=== PATIENT | female | born 1935 | race Caucasian/White ===

== ENCOUNTER → 2017-12-21 08:57 | Outpatient (CLI) | payer MEDICARE, SELFPAY ==
[2017-12-21 11:42] LABS: Absolute Lymphocyte Count 0.68 X10^3/ul (0.83-4.51); Absolute Neutrophil Count 3.4 X10^3/uL (2.0-7.7); Basophil# 0.04 X10^3/uL; Basophil% 0.9 % (0-1); Eosinophil# 0.07 X10^3/uL; Eosinophils% 1.5 % (0-5); Hematocrit 38.4 % (37-47); Hemoglobin 12.6 g/dl (12.0-15.0); Lymphocyte # 0.68 X10^3/ul (4.0); Lymphocyte % 14.9 % (19-41); Mean Corp Hgb Conc 32.8 g/gl (32-36); Mean Corpuscular Hgb 31.2 pg (27.0-32.0); Mean Platelet Vol. 10.6 fl (6.2-12.0); Monocyte# 0.38 X10^3/uL; Monocyte% 8.3 % (0-10); Neutrophil % 74.4 % (47-70); Platelet Count 197 K/mm3 (150-450); RBC Distribution Width CV 12.6 % (11.6-14.6); RBC Distribution Width SD 42.7 fl (35.1-43.9); Red Blood Count 4.04 M/mm3 (4.2-5.4); White Blood Count 4.6 K/mm3 (4.4-11.0)
[2017-12-21 11:44] LABS: POSITIVE COUNT NO; POSITIVE DIFFERENTIAL NO; POSITIVE MORPHOLOGY NO
[2017-12-21 11:59] LABS: Vitamin D,25 Hydroxy 23.5 ng/mL (29.95-100.01)
[2017-12-21 12:01] LABS: AST(SGOT) 25 U/L (15-37); Alanine Aminotransfer ALT/SGPT 25 U/L (13-56); Albumin, Serum 3.4 g/dL (3.2-5.0); Alkaline Phosphatase 83 U/L (45-117); Anion Gap 3 (5-15); BUN 17 mg/dL (7-18); Calcium,Total 8.7 mg/dL (8.5-10.1); Chloride 103 mmol/L (98-107); Creatinine, Serum 0.85 mg/dL (0.55-1.02); EST Glomerular Filtration Rate 68 mL/min (>60); Est Glom Filt Rate - Afr Amer 82 mL/min (>60); Globulin 3.4 g/dL (2.2-4.2); Glucose 112 mg/dL (74-106); Potassium 4.3 mmol/L (3.5-5.1); Protein, Total 6.8 g/dL (6.4-8.2); Sodium Level 139 mmol/L (136-145); Thyroid Stim Hormone (TSH) 0.56 uIU/mL (0.358-3.74)
== END ==
PROVIDERS: Family Provider Family Medicine Geriatric Medicine; PCP Family Medicine Geriatric Medicine; Visit Provider Family Medicine Geriatric Medicine
DX: E55.9 Vitamin D deficiency, unspecified (principal); R53.83 Other fatigue
CPT/HCPCS: 36415; 80053; 82306; 84443; 85025

== ENCOUNTER 2018-06-05 09:33 | Emergency (ER) | payer MEDICARE, OTHER, SELFPAY ==
[2018-06-05 09:34] VITALS: BP 160/82; PULSE 84; RESP 16; TEMP 36.4; O2SAT 100; BMI 18.3
--- NOTE | 2018-06-05 09:47 | RAD_ITS ---
STUDY: X-RAY - RIGHT RADIUS AND ULNA REASON FOR EXAM: Female, 83 years old. Pain following injury. TECHNIQUE: 2 view(s) of the forearm. COMPARISON: None. FINDINGS: There is no demonstrated soft tissue swelling. Normal visualized radius. Normal visualized ulna. RAD/Forearm 2 Views IMPRESSION: Normal x-ray examination of the radius and ulna. Electronically Signed: Jarred Holbrook MD at 10:59 EST , Service support ,
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
--- NOTE | 2018-06-05 11:19 | ED.DEP ---
ED Disposition - Plan for ED Patient: Chief Complaint: Upper Extremity Injury Instructions: ED Contusion Soft Tissue Referrals: Rafael Thakur Chi, MD [Primary Care Provider] -
== END 2018-06-05 11:56 | disposition home or self-care (01) ==
PROVIDERS: Emergency Provider Emergency Medicine; Family Provider Family Medicine Geriatric Medicine; PCP Family Medicine Geriatric Medicine
DX: S50.11XA Contusion of right forearm, initial encounter (principal); W50.0XXA Accidental hit or strike by another person, initial encounter; Y93.9 Activity, unspecified; Y92.9 Unspecified place or not applicable; Y99.9 Unspecified external cause status
CPT/HCPCS: 73090; 99282

== ENCOUNTER → 2018-06-10 11:18 | Outpatient (CLI) | payer MEDICARE, OTHER, SELFPAY ==
[2018-06-05 09:34] VITALS: BMI 18.3
--- NOTE | 2018-06-10 11:22 | US_ITS ---
STUDY: SUPERFICIAL ULTRASOUND - FOREARM, RIGHT REASON FOR EXAM: Female, 83 years old. Posterior for mass TECHNIQUE: A superficial ultrasound was performed with real-time and static color Doppler and novoa-scale imaging. COMPARISON: X-ray performed 06/05/2018 FINDINGS: Forearm injury, x-ray of 06/05/2018. At the location of interest posterior right forearm, within the musculature there is an oval partially ill-defined heterogeneous hypoechoic focus with no significantly increased vascularity. This is most consistent with a resolving hematoma in the setting of recent trauma. This focus measures approximately 2.2 x 0.9 x 0.5 cm. US/Ext Non Vasc Limited/Soft Tiss IMPRESSION: The findings most consistent with an intramuscular hematoma. Electronically Signed: Torin Sam MD at 12:55 EST Tel , Service support ,
== END ==
PROVIDERS: Family Provider Family Medicine Geriatric Medicine; PCP Family Medicine Geriatric Medicine; Referring Provider Family Medicine Geriatric Medicine; Visit Provider Family Medicine Geriatric Medicine
DX: M79.9 Soft tissue disorder, unspecified (principal)
CPT/HCPCS: 76882

== ENCOUNTER → 2018-12-27 08:48 | Outpatient (CLI) | payer MEDICARE, OTHER, SELFPAY ==
[2018-12-27 12:57] LABS: Absolute Lymphocyte Count 0.61 X10^3/uL (0.83-4.51); Absolute Neutrophil Count 3.4 X10^3/uL (2.0-7.7); Basophil# 0.03 X10^3/uL; Basophil% 0.7 % (0-1); Eosinophil# 0.06 X10^3/uL; Eosinophils% 1.4 % (0-5); Hematocrit 37.6 % (37-47); Hemoglobin 11.7 g/dL (12.0-15.0); Lymphocyte # 0.61 X10^3/ul (4.0); Lymphocyte % 13.9 % (19-41); Mean Corp Hgb Conc 31.1 g/dL (32-36); Mean Corpuscular Hgb 29.9 pg (27.0-32.0); Mean Corpuscular Volume 96.2 fL (81-99); Mean Platelet Vol. 10.5 fl (6.2-12.0); Monocyte# 0.33 X10^3/uL; Monocyte% 7.5 % (0-10); NRBC Flagged by Analyzer 0 % (0-5); Neutrophil # 3.35 X10^3/uL (2.7-7.7); Neutrophil % 76.3 % (47-70); Platelet Count 184 K/mm3 (150-450); RBC Distribution Width SD 46.4 fl (35.1-43.9); Red Blood Count 3.91 M/mm3 (4.2-5.4); White Blood Count 4.4 K/mm3 (4.4-11.0)
[2018-12-27 13:28] LABS: ALB/GLOB Ratio 1.2 RATIO (0.9-2.4); AST(SGOT) 31 U/L (15-37); Alanine Aminotransfer ALT/SGPT 27 U/L (13-56); Alkaline Phosphatase 95 U/L (45-117); Anion Gap 4 (5-15); BUN 27 mg/dL (7-18); BUN/Creat Ratio 27.2 RATIO (10-20); Calcium,Total 9.1 mg/dL (8.5-10.1); Chloride 105 mmol/L (98-107); Creatinine, Serum 0.99 mg/dL (0.55-1.02); EST Glomerular Filtration Rate 57 mL/min (>60); Est Glom Filt Rate - Afr Amer 69 mL/min (>60); Globulin 3.4 g/dL (2.2-4.2); Glucose 140 mg/dL (74-106); Potassium 3.9 mmol/L (3.5-5.1); Protein, Total 7.4 g/dL (6.4-8.2); Sodium Level 140 mmol/L (136-145); Thyroid Stim Hormone (TSH) 0.91 uIU/mL (0.358-3.74)
[2018-12-30 09:52] LABS: Hemoglobin A1c 5.6 % (4.2-6.3)
== END ==
PROVIDERS: Family Provider Family Medicine Geriatric Medicine; PCP Family Medicine Geriatric Medicine; Visit Provider Family Medicine Geriatric Medicine
DX: E55.9 Vitamin D deficiency, unspecified (principal); R53.83 Other fatigue; E11.9 Type 2 diabetes mellitus without complications
CPT/HCPCS: 36415; 80053; 82306; 83036; 84443; 85025

== ENCOUNTER 2019-04-13 18:55 | Emergency (ER) | payer OTHER, MEDICARE, SELFPAY ==
[2019-04-13 18:57] VITALS: BP 166/93; PULSE 78; PULSE 83; RESP 17; RESP 18; TEMP 36.6; O2SAT 100; O2SAT 95; BMI 18.3
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
[2019-04-13 20:19] VITALS: PULSE 86; RESP 15; O2SAT 97
== END 2019-04-13 20:21 | disposition home or self-care (01) ==
PROVIDERS: Emergency Provider Emergency Medicine; Family Provider Family Medicine Geriatric Medicine; PCP Family Medicine Geriatric Medicine
DX: S51.811A Laceration without foreign body of right forearm, initial encounter (principal); W20.8XXA Other cause of strike by thrown, projected or falling object, initial encounter; Y93.9 Activity, unspecified; Y92.89 Other specified places as the place of occurrence of the external cause; Y99.9 Unspecified external cause status
CPT/HCPCS: 12001; 99284

== ENCOUNTER → 2019-12-29 09:28 | Outpatient (CLI) | payer MEDICARE, OTHER, SELFPAY ==
[2019-04-21 13:15] VITALS: BMI 18.3
[2019-12-29 12:33] LABS: Absolute Lymphocyte Count 0.99 X10^3/uL (0.83-4.51); Absolute Neutrophil Count 3.8 X10^3/uL (2.0-7.7); Basophil# 0.06 X10^3/uL; Basophil% 1.1 % (0-1); Eosinophil# 0.09 X10^3/uL; Eosinophils% 1.7 % (0-5); Hematocrit 39.8 % (37-47); Hemoglobin 12.8 g/dL (12.0-15.0); Lymphocyte # 0.99 X10^3/ul (4.0); Lymphocyte % 18.5 % (19-41); Mean Corp Hgb Conc 32.2 g/dL (32-36); Mean Corpuscular Hgb 31.5 pg (27.0-32.0); Mean Platelet Vol. 10.8 fl (6.2-12.0); Monocyte# 0.39 X10^3/uL; Monocyte% 7.3 % (0-10); NRBC Flagged by Analyzer 0 % (0-5); Neutrophil # 3.81 X10^3/uL (2.7-7.7); Platelet Count 239 K/mm3 (150-450); RBC Distribution Width CV 12.9 % (11.6-14.6); Red Blood Count 4.06 M/mm3 (4.2-5.4); White Blood Count 5.4 K/mm3 (4.4-11.0)
[2019-12-29 12:46] LABS: Vitamin D,25 Hydroxy 35.3 ng/mL
[2019-12-29 12:57] LABS: ALB/GLOB Ratio 1.1 RATIO (0.9-2.4); AST(SGOT) 21 U/L (15-37); Alanine Aminotransfer ALT/SGPT 21 U/L (13-56); Albumin, Serum 3.7 g/dL (3.2-5.0); Alkaline Phosphatase 82 U/L (45-117); Anion Gap 3 (5-15); BUN 23 mg/dL (7-18); Calcium,Total 8.8 mg/dL (8.5-10.1); Chloride 103 mmol/L (98-107); EST Glomerular Filtration Rate 56 mL/min (>60); Est Glom Filt Rate - Afr Amer 68 mL/min (>60); Globulin 3.5 g/dL (2.2-4.2); Glucose 166 mg/dL (74-106); Potassium 4.3 mmol/L (3.5-5.1); Protein, Total 7.2 g/dL (6.4-8.2); Sodium Level 140 mmol/L (136-145)
== END ==
PROVIDERS: PCP Family Medicine Geriatric Medicine; Visit Provider Family Medicine Geriatric Medicine
DX: E55.9 Vitamin D deficiency, unspecified (principal); R53.83 Other fatigue
CPT/HCPCS: 36415; 80053; 82306; 84443; 85025

== ENCOUNTER 2020-07-29 12:21 | Emergency (ER) | payer MEDICARE, OTHER, SELFPAY ==
[2019-04-21 13:15] VITALS: BMI 18.3
[2020-07-29 12:22] VITALS: BP 152/97; PULSE 97; RESP 14; TEMP 36.4; O2SAT 96; BMI 18.3
--- NOTE | 2020-07-29 12:51 | ED.DCSUM_ITS ---
History of Present Illness Chief Complaint: Back Informant: Patient Narrative: 85-year-old female presenting to the emergency department for low back pain. Symptoms are present for 1 month. She states she could not get a hold of her doctor and when she called the answering machine said if you had a medical emergency to call 911 or go to emergency so here she has. She tells me that nothing has really changed in the past month although she continues to hurt. She describes it as bilateral over the low back that radiates somewhat to the front. She denies any urinary or stool symptoms. She is been eating and drinking normally. She feels better when she arches her back posteriorly. She does not exacerbate her pain if she touches her toes. She denies any radicular symptoms. No fevers. No prolonged steroid use. No red flag history. No recent falls or trauma. Patient states that about a month ago she traveled to [place] and it was much more tolerable that it is now, though she calls this pain a nuisance. Past Medical History - Allergies and Home Meds Allergies/Adverse Reactions: Allergies amoxicillin Allergy (Verified 07/29/20 12:24) Rash Primary Care Physician: Rafael Thakur Chi, MD [Primary Care Provider] - 1 Week Past Medical History: None Surgical History: noncontributory Smoking Status: Unknown if ever smoked Drugs: None Review of Systems General: Denies: Chills, Fever, Sweats Eyes: Denies: Visual changes - bilaterally, Diplopia ENT: Denies: Rhinorrhea, Sore throat Cardiovascular: Denies: Chest pain, Palpitations Respiratory: Denies: Dyspnea, Cough, Dyspnea on exertion Gastrointestinal: Denies: Abdominal pain, Nausea, Vomiting, Diarrhea, Melena, Hematochezia Genitourinary: Denies: Dysuria, Hematuria, Frequency Musculoskeletal: Reports: Back pain. Denies: Extremity Pain Skin: Denies: Rash, Wounds Neurological: Denies: Headache, Weakness, Numbness Physical Exam Vital Signs/Narrative: Vital Signs Temp Pulse Resp BP Pulse Ox 07/29/20 12:22 97.6 F L 97 14 152/97 H 96 Inital Vital Signs reviewed: Yes General: Well nourished, Well developed, No Acute Distress Head: Normocephalic, Atraumatic Eyes: Perrl, EOMI ENT: Moist mucous membranes, No rhinorrhea Neck: Supple, Nontender Cardiovascular: Regular rate, Regular rhythm, No murmurs Respiratory: No distress, CTA bilaterally, Chest nontender Abdomen: Soft, Nontender, Nondistended, Normal bowel sounds Back: - - Mild tenderness palpation over the lumbar paraspinal musculatures of L3 and inferiorly to the SI joint. Extremities: Nontender, No edema Skin: Normal color, No rash Neurological: Alert, Oriented x3, Cranial nerves II-XII grossly intact, Normal Strength, Normal Sensation Psychological: Normal affect, Normal Mood Diagnostic/Tx/Re-eval Clinical Impression(s) from Imaging Studies Lumbar Spine X-Ray 07/29/20 12:51 IMPRESSION: Degenerative changes of the spine, as detailed above. Electronically Signed: Jarred Holbrook MD at 13:53 EDT , Service support , Pelvis X-Ray 07/29/20 12:51 IMPRESSION: No acute abnormality is seen. Electronically Signed: Jarred Holbrook MD at 13:52 EDT , Service support , Laboratory Last Values Urine Color Yellow (Yellow) 07/29/20 14:40 Urine Clarity Clear (Clear) 07/29/20 14:40 Urine pH 7.0 (5.0 - 8.0) 07/29/20 14:40 Ur Specific [place] 1.005 (1.002-1.030) 07/29/20 14:40 Urine Protein Negative mg/dl (Negative) 07/29/20 14:40 Urine Glucose (UA) Normal mg/dl (Normal) 07/29/20 14:40 Urine Ketones Negative mg/dl (Negative) 07/29/20 14:40 Urine Occult Blood Negative /ul (Negative) 07/29/20 14:40 Urine Nitrite Negative (Negative) 07/29/20 14:40 Urine Bilirubin Negative mg/dL (Negative) 07/29/20 14:40 Urine Urobilinogen Normal mg/dl (Normal) 07/29/20 14:40 Ur Leukocyte Esterase Negative /ul (Negative) 07/29/20 14:40 Urine RBC 0 SEEN /hpf (0-5) 07/29/20 14:40 Urine WBC 0 SEEN /hpf (0-5) 07/29/20 14:40 Ur Squamous Epith Cells 0 SEEN /hpf (5-10) 07/29/20 14:40 Urine Bacteria 0 SEEN /hpf (None Seen) 07/29/20 14:40 Urine Mucus 0 SEEN /hpf (<or=2+) 07/29/20 14:40 - Medical Decision Making My interpretation of the x-rays of the lumbar spine show degenerative changes. Interpretation of the pelvis is no acute fracture. I think this is more musculoskeletal in nature. We will write for some low-dose Valium. She was advised on anti-inflammatories. She was advised the risk of Valium. Would recommend follow-up with primary care. I expressed to the patient that low back pain can be quite problematic and have a prolonged clinical course. ED Disposition - Plan for ED Patient: Disposition: Home or Assisted Living Diagnosis: Acute low back pain, Degenerative arthritis of lumbar spine Instructions: ED Osteoarthritis Prescriptions: Naproxen [Naprosyn] 500 mg PO BID #14 tablet Prescription Printed Diazepam [Valium] 2 mg PO TID PRN PRN #10 tab PRN Reason: Vertigo Prescription Printed Referrals: Rafael Thakur Chi, MD [Primary Care Provider] - 1 Week
--- NOTE | 2020-07-29 12:51 | RAD_ITS ---
STUDY: X-RAY - LUMBAR SPINE REASON FOR EXAM: Female, 85 years old. Pain TECHNIQUE: 3 view(s) of the lumbar spine were obtained. COMPARISON: None FINDINGS: Normal lumbar lordosis. There is no substantial scoliosis. There is a normal alignment of the vertebrae. Normal vertebral bodies and endplates. There is a moderate degree of displacement at the L4-L5 and L5-S1 levels. There is facet joint osteoarthritis. The soft tissue structures are unremarkable. RAD/Lumbar Spine 2 or 3 Views IMPRESSION: Degenerative changes of the spine, as detailed above. Electronically Signed: Jarred Holbrook MD at 13:53 EDT , Service support ,
--- NOTE | 2020-07-29 12:51 | RAD_ITS ---
STUDY: X-RAY - PELVIS REASON FOR EXAM: Female, 85 years old. Pain TECHNIQUE: One view of the pelvis was obtained. COMPARISON: None. FINDINGS: There is a non-specific bowel gas pattern. Normal visualized soft tissue structures. There is narrowing with cortical sclerosis and osteophyte formation of the sacroiliac joint consistent with degenerative osteoarthritic changes. Normal visualized bilateral superior and inferior pubic rami. Normal pubic symphysis. Normal ischial tuberosities. Normal visualized right femoral head. Normal right acetabulum. There is mild articular joint space narrowing of the right hip. Normal visualized left femoral head. Normal left acetabulum. There is mild articular joint space narrowing of the left hip. RAD/Pelvis 1 or 2 Views IMPRESSION: No acute abnormality is seen. Electronically Signed: Jarred Holbrook MD at 13:52 EDT , Service support ,
[2020-07-29 13:36] VITALS: BP 133/83; PULSE 78; RESP 18; O2SAT 99
[2020-07-29 15:14] LABS: Bacteria 0 SEEN /hpf (None Seen); Mucous, Urine 0 SEEN /hpf (<or=2+); Red Blood Cells-Urine 0 SEEN /hpf (0-5); Squamous Epithelial Cells - UA 0 SEEN /hpf (5-10); White Blood Cells 0 SEEN /hpf (0-5)
[2020-07-29 15:16] LABS: Color, Urine Yellow (Yellow); Glucose, Dipstick Normal (Normal); Ketone-Dipstick Negative (Negative); Leukocyte Esterase-Dipstick Negative /ul (Negative); Nitrite-Dipstick Negative (Negative); Occult Blood-Urine Negative /ul (Negative); Protein-Dipstick Negative (Negative); Specific Gravity, Urine 1.005 (1.002-1.030); Urine Bilirubin Dipstick Negative (Negative); Urine Clarity Clear (Clear); Urine Urobilinogen Normal (Normal)
[2020-07-29 15:39] VITALS: BP 131/74; PULSE 71; RESP 16; O2SAT 99
== END 2020-07-29 15:40 | disposition home or self-care (01) ==
PROVIDERS: Emergency Provider Emergency Medicine; PCP Family Medicine Geriatric Medicine
DX: M54.5 Low back pain (principal); M47.816 Spondylosis without myelopathy or radiculopathy, lumbar region
CPT/HCPCS: 72100; 72170; 81001; 99282

== ENCOUNTER → 2020-08-23 16:13 | Outpatient (CLI) | payer MEDICARE, SELFPAY ==
[2020-07-29 12:22] VITALS: BMI 18.3
--- NOTE | 2020-08-23 16:41 | RAD_ITS ---
INDICATION: THORACIC BACK PAIN EXAMINATION/TECHNIQUE: X-RAY - XR Spine Thoracic 3 Views COMPARISON: None FINDINGS: Very limited examination due to overpenetration. VERTEBRAE: Preserved vertebral body height. No fracture. No spondylolisthesis. Exaggeration of the normal thoracic kyphosis. Mild multilevel facet arthropathy. DISCS: Mild multilevel degenerative changes of the thoracic spine. INCLUDED CHEST/ABDOMEN: Tortuous and calcified thoracic aorta. RAD/Thoracic Spine 3 Views IMPRESSION: Very limited examination due to overpenetration. Despite limitations: No acute abnormalities. Mild multilevel thoracic spondylosis. Electronically Signed: Mike Duffy MD at 23:00 EDT Tel , Service support ,
== END ==
PROVIDERS: PCP Family Medicine Geriatric Medicine; Referring Provider Family Medicine Geriatric Medicine; Visit Provider Family Medicine Geriatric Medicine
DX: M54.16 Radiculopathy, lumbar region (principal)
CPT/HCPCS: 72072

== ENCOUNTER → 2020-09-06 15:57 | Outpatient (CLI) | payer MEDICARE, SELFPAY ==
--- NOTE | 2020-09-06 16:00 | VDLE_ITS ---
Reason For Study: Edema Procedure LEFT This is a venous duplex using B-mode, color GSV is normal. flow and spectral Doppler. CFV is compressible, spontaneous, phasic, Exam performed in department. competent, and demonstrates normal A preliminary report was called and/or faxed augmentation. to [facility]. FV is compressible, spontaneous, phasic, competent and demonstrates normal augmentation. POP V is compressible, spontaneous, phasic, competent and demonstrates normal augmentation. T/P Trunk is compressible. PTV is compressible. LT PerV is compressible. VL/Venous Duplex US, Unilateral Interpretation Summary Deep veins of the left lower extremity are patent and compressible segmentally. There is no evidence of left lower extremity deep vein thrombosis. Valvular competence appears intac t within the proximal deep venous system on the left . The left great saphenous vein appears patent a nd compressible segmentally. Ordering Physician: Rafael Thakur Referring Physician: Rafael Thakur Chi Performed By: Yolanda Russo RVT
--- NOTE | 2020-09-06 16:20 | RAD_ITS ---
INDICATION: ABD PAIN EXAMINATION/TECHNIQUE: X-RAY - XR Abdomen W/ Decub and/or Erect Views COMPARISON: None FINDINGS: BOWEL GAS PATTERN: Non-obstructive. No bowel or stomach distention. FREE AIR: Not assessed on a single supine view. ORGANOMEGALY: Not seen. CALCIFICATIONS: Calcification of the costal cartilage with several chronic fracture deformities. LOWER CHEST: No acute pathology. BONES AND SOFT TISSUES: No acute pathology. Degenerative changes of the lumbar spine, sacroiliac joints and bilateral hips. RAD/Abd Inc Decub and/or Erect IMPRESSION: Nonobstructive bowel gas pattern. Calcification of the costal cartilage with several chronic fracture deformities. Electronically Signed: Mike Duffy MD at 16:35 EDT Tel , Service support ,
[2020-09-06 18:11] LABS: ALB/GLOB Ratio 0.9 RATIO (0.9-2.4); AST(SGOT) 29 U/L (15-37); Alanine Aminotransfer ALT/SGPT 17 U/L (13-56); Albumin, Serum 2.8 g/dL (3.2-5.0); Alkaline Phosphatase 91 U/L (45-117); Anion Gap 7 (5-15); BUN 41 mg/dL (7-18); BUN/Creat Ratio 32.8 RATIO (10-20); Calcium,Total 9.3 mg/dL (8.5-10.1); Chloride 101 mmol/L (98-107); Creatinine, Serum 1.25 mg/dL (0.55-1.02); EST Glomerular Filtration Rate 43 mL/min (>60); Est Glom Filt Rate - Afr Amer 53 mL/min (>60); Glucose 98 mg/dL (74-106); Potassium 4.5 mmol/L (3.5-5.1); Protein, Total 5.8 g/dL (6.4-8.2); Sodium Level 138 mmol/L (136-145)
[2020-09-06 18:23] LABS: Absolute Neutrophil Count 11.1 X10^3/uL (2.0-7.7); Basophil# 0.03 X10^3/uL; Basophil% 0.2 % (0-1); Eosinophil# 0.01 X10^3/uL; Eosinophils% 0.1 % (0-5); Hematocrit 39.2 % (37-47); Hemoglobin 12.4 g/dL (12.0-15.0); Lymphocyte % 4.6 % (19-41); Mean Corp Hgb Conc 31.6 g/dL (32-36); Mean Corpuscular Hgb 29.4 pg (27.0-32.0); Mean Corpuscular Volume 92.9 fL (81-99); Monocyte# 1.21 X10^3/uL; Monocyte% 9.3 % (0-10); NRBC Flagged by Analyzer 0 % (0-5); Neutrophil # 11.11 X10^3/uL (2.7-7.7); Neutrophil % 85.4 % (47-70); POSITIVE DIFFERENTIAL YES; Platelet Count 401 K/mm3 (150-450); RBC Distribution Width CV 12.9 % (11.6-14.6); Red Blood Count 4.22 M/mm3 (4.2-5.4)
[2020-09-06 18:24] LABS: Differential Indicated SCAN CRITERIA MET
[2020-09-06 18:26] LABS: Platelet Estimate ADEQUATE (ADEQ); Red Cell Morphology NORM C+C NORMAL (NORM C&C)
== END ==
PROVIDERS: PCP Family Medicine Geriatric Medicine; Referring Provider Family Medicine Geriatric Medicine; Visit Provider Family Medicine Geriatric Medicine
DX: R10.9 Unspecified abdominal pain (principal); R53.83 Other fatigue; R60.0 Localized edema
CPT/HCPCS: 36415; 74019; 80053; 85025; 93971

== ENCOUNTER 2020-09-09 13:54 | Outpatient (RCR) | payer MEDICARE, SELFPAY ==
--- NOTE | 2020-10-05 10:50 | HP.PTEVAL ---
Patient's Visit Information CASI CUMMINGS is a 85 year old F referred to Physical Therapy by Dr. Rafael Thakur MD with a diagnosis of Thoracic back pain, low back pain.. Date of Evaluation: 09/09/20 Physical Therapist: Carlito Wilson DPT - Visit Plan Frequency: 2x /Week Duration: 4 Weeks Plan: Have the pt. work on strengthening the core musculature and general lower extremity musculature. The pt. does get fatigued after walking for short distances and is something that should be addressed at PT. Have the pt. continue to progress her ROM gently as she is very weak. The pt. prefers flexion and this decreases her pain. - Subjective The pt. is a 85 yo female who presents to the clinic in a wheelchair with low back and abdominal pain where it is worse on the left side. The pt. has been experiencing this pain for about 10 weeks and it has progressively gotten worse and was referred by her doctor, Dr. Thakur. She ranks her pain to be a 5/10 and can get up to a 10/10, but is only icing the region for pain relief and is not taking any pain medication at the moment. She denies any numbness or tingling. Prior to the pts. 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 The pt. states that she gets up and walks about 30 feet every 2 hours, as well as move her lower extremities as much as she is able. She is currently sleeping on the couch on one of her sides due to the pain being too intense while on her back or her stomach. Within the past week, the pt. reported visible swelling into her left distal leg and foot, as well as bloating in her abdomen. Her DrConsuelo did test for blood clots within the lower extremity and none were found. The pt. reports that she has no numbness or tingling within the saddle region, but has had a change in her stool. - Pain Low back Pain Intensity (Out of 10): 5 Pain Intensity Range: 8 - Objective Posture: forward head, rounded shoulders, excessive thoracic kyphosis, decreased lumbar lordosis in both standing and sitting. MMT: hip flexion bilat 3+/5, knee extension bilat 4/5, knee flexion R 4/5, L 3+/5, dorsiflexion/inversion bilat 5/5, great toe extension bilat 4/5, foot eversion bilat 5/5, L hip abduction 3+/5, R not tested due to pain. ROM: Lumbar flex minimal limitation, lumbar ext max limitation, lumbar sidebending max limitation, lumbar rotation minimal limitation. Sensation: All LE intact and symmetrical. Reflexes: R patellar reflex 2+ = normal, L patellar reflex 1+ = diminished, R achilles 1+ = diminished, L achilles 1+ = diminished. Palpation: No tenderness reported from pt. along the spine, greater trochanters, iliac crests, and ASIS's. Rib outflare on L side. L leg was palpated and showed swelling and pitting edema. It is negative for Homans and dopplar was negative for DVT. The left leg felt cold, compared to the right leg. - Goals Goal 1:: LTG: The pt. will be compliant and independent with her HEP. Goal Time Frame: 2-4 Weeks Goal 2:: LTG: The pt. will increase her lumbar ROM by 25%, so the pt. can tolerate position changes from sitting to standing. Goal Time Frame: 4-6 Weeks Goal 3:: LTG: The pt. will increase her lower extremity strength to a 4+/5 so she can tolerate ambulating in her community. Goal Time Frame: 4-6 Weeks Goal 4:: Pt. will be able to walk for 10 minutes without use of an AD and with pain less than a 2/10. Goal Time Frame: 4-6 Weeks - Rehabilitation Potential Physical Therapy Diagnosis: The pt. presents to the clinic with signs and symptoms consistent with low back pain, general muscle weakness, and loss in lumbar ROM. The pt. is needing PT to decrease her low back pain and increase her tolerance to activity, increase her strength, and increase her ROM. Rehabilitation Potential: Good - Anticipated Interventions Patient/Client Instruction: Educate patient on: Condition, Plan of Care For the Purpose of:: To decrease pain, To increase ROM, To increase tolerance to activity/condition/position, To improve endurance, To improve safety, To improve tolerance to ADL's Therapeutic Exercise to Include: Strength training, Endurance training, Balance training, Body mechanics, Postural training, Flexibilty training, Active ROM For the Purpose of:: To decrease pain, To decrease swelling/inflammation, To increase ROM, To improve muscle performance and motor function, To improve ability to perform ADL's, To increase tolerance to activity/condition/position, To improve performance and independence with ADL's, To improve ability of physical actions for home/community/work/leisure, To increase flexibility/ROM, To improve endurance, To improve tolerance to ADL's Manual Therapy Techniques to Include: Petrissage, Trigger point massage, Mobilization, Passive ROM, Soft tissue mobilization For the Purpose of:: To decrease pain, To increase ROM, To improve nutrient delivery to tissue, To improve tolerance to ADL's Thank you for the opportunity to evaluate your patient. For Medicare and Medicare HMO plans, please review the plan of care and approve it. It will need to be FAXED BACK to us at [phone] for Medicare purposes. For Medicare only, by signing this I certify the plan of care. Please let me know if there are questions or concerns regarding this plan of care. Physician Signature: Date:
--- NOTE | 2020-10-05 10:53 | HP.PT.NRP ---
CASI CUMMINGS was seen in my office for initial evaluation on 09/09/20. The following Plan of Care was established for this patient: Initial Frequency: 2x /Week Initial Duration: 4 Weeks Patient/Client Instruction: Educate patient on: Condition, Plan of Care For the Purpose of:: To decrease pain, To increase ROM, To increase tolerance to activity/condition/position, To improve endurance, To improve safety, To improve tolerance to ADL's Therapeutic Exercise to Include: Strength training, Endurance training, Balance training, Body mechanics, Postural training, Flexibilty training, Active ROM For the Purpose of:: To decrease pain, To decrease swelling/inflammation, To increase ROM, To improve muscle performance and motor function, To improve ability to perform ADL's, To increase tolerance to activity/condition/position, To improve performance and independence with ADL's, To improve ability of physical actions for home/community/work/leisure, To increase flexibility/ROM, To improve endurance, To improve tolerance to ADL's Manual Therapy Techniques to Include: Petrissage, Trigger point massage, Mobilization, Passive ROM, Soft tissue mobilization For the Purpose of:: To decrease pain, To increase ROM, To improve nutrient delivery to tissue, To improve tolerance to ADL's This patient was last seen in our office 10/05/20. Pertinent comments regarding their Physical therapy will appear below: Pt's daughter called me today to inform me that her mother had . Pt. will be DC from PT at this point in time. At this point I will be discontinuing this patient from physical therapy. I would be happy to see this patient again in the future if found appropriate by the physician. Thank you! JEN BruceT
== END 2020-09-09 19:00 | disposition home or self-care (01) ==
LOC: PT 13:54
PROVIDERS: PCP Family Medicine Geriatric Medicine; Referring Provider Family Medicine Geriatric Medicine; Visit Provider Family Medicine Geriatric Medicine
DX: M54.6 Pain in thoracic spine (principal); M54.5 Low back pain
CPT/HCPCS: 97161

== ENCOUNTER → 2020-09-09 16:10 | Outpatient (CLI) | payer MEDICARE, SELFPAY ==
--- NOTE | 2020-09-09 16:15 | RAD_ITS ---
STUDY: X-RAY - ABDOMEN/PELVIS REASON FOR EXAM: Female, 85 years old. ABD PAIN TECHNIQUE: 2 views COMPARISON: Prior exam of 09/06/2020 FINDINGS: Chronic flattening and scalloping of the right diaphragm versus subpulmonic effusion. Elevated left diaphragm versus subpulmonic effusion and volume loss and infiltrates versus chronic changes at the left lung base. Fluid levels in the upper abdomen, one of which appears to be a dilated fluid-filled small bowel loop on the left and a central loop which is indeterminate and may be colon or small bowel. Otherwise there is a general paucity of visible colon gas, mostly on the right side of the colon. There is no demonstrated free abdominal air. Negative for gross organomegaly. Normal soft tissue structures. Normal visualized osseous structures. RAD/Abd Inc Decub and/or Erect IMPRESSION: Chronic versus acute changes of the lung bases as described above. Suspicious air fluid levels in the upper abdomen as described above and a reduced amount of identifiable colonic content. Findings are suspicious for small bowel obstruction versus ileus. Electronically Signed: Idalmis Justice MD at 16:57 EDT , Service support ,
== END ==
PROVIDERS: PCP Family Medicine Geriatric Medicine; Referring Provider Family Medicine Geriatric Medicine; Visit Provider Family Medicine Geriatric Medicine
DX: R10.9 Unspecified abdominal pain (principal)
CPT/HCPCS: 74019

== ENCOUNTER 2020-09-10 12:12 | Emergency (ER) | payer MEDICARE, SELFPAY ==
[2020-09-10] VITALS (10 sets, daily range): BP systolic 100–145; BP diastolic 57–74; PULSE 117–130; RESP 12–19; TEMP 35.6; O2SAT 86–96; BMI 19.0
--- NOTE | 2020-09-10 13:18 | EKG12_ITS ---
Test Reason : SOB Blood Pressure : / mmHG Vent. Rate : 116 BPM Atrial Rate : 116 BPM P-R Int : 160 ms QRS Dur : 084 ms QT Int : 286 ms P-R-T Axes : 063 002 070 degrees QTc Int : 397 ms Sinus tachycardia Anterior infarct , age undetermined Abnormal ECG Confirmed by DOT WINC[place]STER, TREV ([id number]), slot editor LESA LEONARD ([id number]) on 09/13/2020 12:51:10 PM Referred By: MAMI Confirmed By:TREV CHRIS MD
--- NOTE | 2020-09-10 13:19 | EX.ED.DYSGE1 ---
HPI History of Present Illness Chief Complaint: Shortness of Breath Informant: patient and spouse/S.O. Narrative Narrative: Patient presents with hypoxemia tachycardia. She tells me she was sent from her doctor's office to here. Daughter tells me that they went to the office on Sunday where she received a liter of fluids as she was felt to be dehydrated. Basic blood work reportedly was obtained. She also had an abdominal x-ray she was having some abdominal discomfort which was nonspecific in nature. Reported that she did the colon prep and had some bowel movement but not very much. She had a repeat x-ray that showed some suspicious air-fluid levels concerning for ileus versus small bowel obstruction. She also had a duplex ultrasound performed of her left leg that was negative because her left leg has been swelling. She went to the office today was noted that her heart rate was greater than 100 and her pulse ox was around 86%. She has conversational dyspnea. No reported fevers. She has not wanted to eat or drink much this week but family has been encouraging her. [facility] Medical History (Updated 09/10/20 @ 16:[address] Jonatan Nolan, DO) GERD (gastroesophageal reflux disease) Osteoarthritis Thoracic radiculopathy Home Medications gabapentin [Neurontin] 100 mg PO TID 09/10/20 [History Last Taken 09/10/20] pantoprazole 40 mg PO DAILY 09/10/20 [History Last Taken 09/10/20] Allergy/AdvReac Type Severity Reaction Status Date / Time amoxicillin Allergy Rash Verified 09/10/20 12:13 Family History (Updated 04/21/19 @ 13:15 by Shahid Crouch) Other Heart disease Surgical History (Updated 09/10/20 @ 15:19 by Yolanda Burt) History of appendectomy Social History (Updated 04/21/19 @ 16:10 by Wilfrid THAYER, PA) Smoking Status: Never smoker alcohol intake: never ROS ROS ED Constitutional Constitutional ED: Reports fever(s) and other Details: Weight gain Fatigue ; Denies chills or weight loss Eyes Eyes: Denies change in vision or diplopia ENT ENT ED: Reports other Details: Dry mouth ; Denies ear pain, rhinorrhea or sore throat Cardiovascular Cardiovascular: Reports palpitations and racing heartbeat; Denies chest pain or orthopnea Respiratory/Chest Respiratory/Chest: Reports dyspnea; Denies cough or orthopnea Gastrointestinal Gastrointestinal: Reports abdominal pain, constipation and other Details: Abdominal distention ; Denies diarrhea, nausea or vomiting Genitourinary Genitourinary ED: Denies dysuria, hematuria or urinary frequency Musculoskeletal Musculoskeletal: Reports other Details: Left leg swelling ; Denies arthralgias or myalgias Integumentary Denies abscess or rash Neurologic Neurologic: Denies headache(s) or weakness Psychiatric Psychiatric: Denies anxiety, depression, suicidal ideation or suicidal thoughts Endocrine Endocrinology: Denies polydipsia, polyphagia or polyuria Allergic/Immunologic Allergic/Immunologic ED: Denies mouth swelling, tongue swelling or urticaria EXAM Physical Exam Const Vital Signs: 09/10/20 12:13 09/10/20 12:20 09/10/20 12:23 Temperature 96.1 F L Temperature Source Temporal Pulse Rate 124 H 117 H 117 H Respiratory Rate 18 18 19 H Respiratory Effort Respiratory Depth Respiratory Pattern Blood Pressure 100/57 L Blood Pressure Mean 71 Pulse Ox 89 86 94 Oxygen Delivery Method Room Air Room Air Nasal Cannula Oxygen Flow Rate (L/min) 2 09/10/20 12:27 09/10/20 15:27 Temperature Temperature Source Pulse Rate 117 H Respiratory Rate 19 H Respiratory Effort Normal Non-Labored Respiratory Depth Normal Respiratory Pattern Normal Blood Pressure 123/71 H Blood Pressure Mean 88 Pulse Ox 96 Oxygen Delivery Method Nasal Cannula Nasal Cannula Oxygen Flow Rate (L/min) 2 3 Positive well nourished and well developed General Appearance ED: well developed and other Patient appears fatigued laying in the bed HEENT Reports normocephalic, head/scalp atraumatic and dry mucous membranes Mouth ED: Yes dry mucous membranes Mouth: dry mucous membranes Eyes PERRL and EOMs intact bilaterally Neck no lymphadenopathy, supple and no JVD Resp Resp Narrative: Patient is tachypneic at rest Auscultation: diminished lung sounds Cardio regular rate and no murmurs Rate: tachycardic GI Inspection: abdominal distention Back/Spine no CVA tenderness and normal ROM Extremity normal to inspection Extremity Narrative: Left leg swelling when compared to the right General Extremety ED: Yes edema General Extremity: edema Neuro oriented x3 and CN's II-XII intact bilaterally Sensorium / Orientation: alert Motor Exam: strength 5/5 throughout Psych mental status grossly normal Mood & Affect: Negative for depressed or tearful Skin no rashes or lesions noted and no wounds MDM MDM MDM Narrative Medical decision making narrative: Patient's labs are reviewed. CTA of the chest and CT of abdomen pelvis was obtained. Left greater than right pleural effusions. No pulmonary embolism. CT of the abdomen pelvis demonstrates a large intra-abdominal mass with ascites. It is measuring 22 x 15 x 14 cm. It surrounds the left kidney extends into the retroperitoneum and the pelvis. There is moderate ascites noted. I had a conversation with the patient and her daughter at the bedside. We are going admit her and see if we can do a thoracentesis/paracentesis for comfort. We will get hospice involved. Lab Data Attestation: I reviewed the patient's lab results. Labs: Laboratory Results - last 24 hr 09/10/20 09/10/20 09/10/20 13:35 13:35 13:35 WBC 9.6 RBC 4.09 L Hgb 12.2 Hct 38.3 MCV 93.6 MCH 29.8 MCHC 31.9 L RDW Std Deviation 44.6 H RDW Coeff of [place] 13.1 Plt Count 353 MPV 9.6 Immature Gran % (Auto) 0.300 Neut % (Auto) 87.1 H Lymph % (Auto) 3.7 L [place] % (Auto) 8.6 Eos % (Auto) 0.1 Baso % (Auto) 0.2 Absolute Neuts (auto) 8.4 H Absolute Lymphs (auto) 0.35 L Nucleated RBC % 0 Sodium Potassium Chloride Carbon Dioxide Anion Gap BUN Creatinine Estim Creat Clear Calc Est GFR (MDRD) Af Amer Est GFR (MDRD) Non-Af BUN/Creatinine Ratio Glucose Lactic Acid Calcium Total Bilirubin AST ALT Alkaline Phosphatase Troponin I B-Natriuretic Peptide 54.9 Total Protein Albumin Globulin Albumin/Globulin Ratio Lipase Urine Color Yellow Urine Clarity Sl. Cloudy Urine pH 5.0 Ur Specific [place] 1.020 Urine Protein 30 H Urine Glucose (UA) Normal Urine Ketones Negative Urine Occult Blood Negative Urine Nitrite Negative Urine Bilirubin 1 H Urine Urobilinogen Normal Ur Leukocyte Esterase 25 H Urine RBC 0 SEEN Urine WBC 0-5 SEEN Ur Squamous Epith Cells 0 SEEN Urine Bacteria RARE Hyaline Casts 10-25 SEEN Coarse Granular Casts 0-5 SEEN Urine Mucus RARE 09/10/20 09/10/20 13:35 13:35 WBC RBC Hgb Hct MCV MCH MCHC RDW Std Deviation RDW Coeff of [place] Plt Count MPV Immature Gran % (Auto) Neut % (Auto) Lymph % (Auto) [place] % (Auto) Eos % (Auto) Baso % (Auto) Absolute Neuts (auto) Absolute Lymphs (auto) Nucleated RBC % Sodium 137 Potassium 4.8 Chloride 103 Carbon Dioxide 31.0 Anion Gap 3 L BUN 56 H Creatinine 1.42 H Estim Creat Clear Calc 23.44 Est GFR (MDRD) Af Amer 45 L Est GFR (MDRD) Non-Af 37 L BUN/Creatinine Ratio 39.4 H Glucose 107 H Lactic Acid 1.1 Calcium 9.7 Total Bilirubin 0.40 AST 32 ALT 20 Alkaline Phosphatase 85 Troponin I < 0.015 B-Natriuretic Peptide Total Protein 6.3 L Albumin 2.7 L Globulin 3.6 Albumin/Globulin Ratio 0.8 L Lipase 40 L Urine Color Urine Clarity Urine pH Ur Specific [place] Urine Protein Urine Glucose (UA) Urine Ketones Urine Occult Blood Urine Nitrite Urine Bilirubin Urine Urobilinogen Ur Leukocyte Esterase Urine RBC Urine WBC Ur Squamous Epith Cells Urine Bacteria Hyaline Casts Coarse Granular Casts Urine Mucus Radiography Diagnostic Testing: Radiology Impression Abdomen/Pelvis CT 09/10/20 14:24 IMPRESSION: Extensive mass of the left abdomen and pelvis extending to the renal hilum and retroperitoneum with displacement of the pancreas. Lymphoma or metastatic disease are leading considerations. There is ascites with loculation. Colonic diverticulosis. No obstruction. Bilateral pleural effusions and lower lung consolidation. Electronically Signed: Raymundo Wiley MD at 15:52 EDT , Service support , Chest CTA 09/10/20 14:26 IMPRESSION: CTA chest examination, without a demonstrated pulmonary embolism or arterial dissection. Bilateral infiltrates and pleural effusions. Electronically Signed: Raymundo Wiley MD at 15:38 EDT , Service support , EKG Initial EKG: Attestation: I personally reviewed and interpreted this EKG as follows: Comments: EKG demonstrates a sinus tachycardia at a rate of 116 Discharge Plan Triage Chief Complaint: Shortness of Breath ED Provider: Jonatan Nolan Dx/Rx/DC Orders Clinical Impression: Intraabdominal mass, Ascites, Bilateral pleural effusion, Hypoxemia, Sinus tachycardia Prescriptions: No Action pantoprazole 40 mg tablet,delayed release (DR/EC) 40 mg PO DAILY RF: 0 gabapentin [Neurontin] 100 mg capsule 100 mg PO TID RF: 0 Primary Care Provider: Rafael Thakur Chi Referrals: Rafael Thakur Chi, MD [Primary Care Provider] - Disposition Disposition: Acute Care Hospital [facility]
--- NOTE | 2020-09-10 13:23 | NURSING ---
NO OLD EKGS
[2020-09-10 13:50] LABS: Red Blood Cells-Urine 0 SEEN /hpf (0-5); Squamous Epithelial Cells - UA 0 SEEN /hpf (5-10)
[2020-09-10 13:52] LABS: Absolute Lymphocyte Count 0.35 X10^3/uL (0.83-4.51); Absolute Neutrophil Count 8.4 X10^3/uL (2.0-7.7); Basophil# 0.02 X10^3/uL; Basophil% 0.2 % (0-1); Differential Indicated SCAN CRITERIA MET; Eosinophil# 0.01 X10^3/uL; Eosinophils% 0.1 % (0-5); Hematocrit 38.3 % (37-47); Hemoglobin 12.2 g/dL (12.0-15.0); Lymphocyte # 0.35 X10^3/ul (0.83-4.51); Lymphocyte % 3.7 % (19-41); Mean Corp Hgb Conc 31.9 g/dL (32-36); Mean Corpuscular Hgb 29.8 pg (27.0-32.0); Mean Corpuscular Volume 93.6 fL (81-99); Mean Platelet Vol. 9.6 fl (6.2-12.0); Monocyte# 0.82 X10^3/uL; Monocyte% 8.6 % (0-10); NRBC Flagged by Analyzer 0 % (0-5); Neutrophil # 8.35 X10^3/uL (2.7-7.7); Neutrophil % 87.1 % (47-70); POSITIVE DIFFERENTIAL YES; Platelet Count 353 K/mm3 (150-450); RBC Distribution Width CV 13.1 % (11.6-14.6); RBC Distribution Width SD 44.6 fl (35.1-43.9); Red Blood Count 4.09 M/mm3 (4.2-5.4); White Blood Count 9.6 K/mm3 (4.4-11.0)
[2020-09-10 13:55] LABS: Color, Urine Yellow (Yellow); Glucose, Dipstick Normal (Normal); Ketone-Dipstick Negative (Negative); Leukocyte Esterase-Dipstick 25 /ul (Negative); Nitrite-Dipstick Negative (Negative); Occult Blood-Urine Negative /ul (Negative); Protein-Dipstick 30 mg/dl (Negative); Urine Clarity Sl. Cloudy (Clear); Urine Urobilinogen Normal (Normal)
[2020-09-10 13:58] LABS: Urine Bilirubin Dipstick 1 mg/dL (Negative)
[2020-09-10 14:06] LABS: Bacteria RARE /hpf (None Seen); Coarse Granular Cast 0-5 SEEN /lpf (0-5 /lpf); Hyaline Cast 10-25 SEEN /lpf (0-5); Mucous, Urine RARE /hpf (<or=2+); White Blood Cells 0-5 SEEN /hpf (0-5)
[2020-09-10 14:12] LABS: ALB/GLOB Ratio 0.8 RATIO (0.9-2.4); AST(SGOT) 32 U/L (15-37); Alanine Aminotransfer ALT/SGPT 20 U/L (13-56); Albumin, Serum 2.7 g/dL (3.2-5.0); Alkaline Phosphatase 85 U/L (45-117); Anion Gap 3 (5-15); BUN 56 mg/dL (7-18); BUN/Creat Ratio 39.4 RATIO (10-20); Calcium,Total 9.7 mg/dL (8.5-10.1); Chloride 103 mmol/L (98-107); Creatinine, Serum 1.42 mg/dL (0.55-1.02); EST Glomerular Filtration Rate 37 mL/min (>60); Est Glom Filt Rate - Afr Amer 45 mL/min (>60); Estimated Creatinine Clearance 23.44 ml/min; Globulin 3.6 g/dL (2.2-4.2); Glucose 107 mg/dL (74-106); Lipase 40 U/L (73-393); Potassium 4.8 mmol/L (3.5-5.1); Protein, Total 6.3 g/dL (6.4-8.2); Sodium Level 137 mmol/L (136-145)
[2020-09-10 14:13] LABS: BNP,B-Type NATRIURETIC PEPTIDE 54.9 pg/mL (0-100)
[2020-09-10 14:17] LABS: Lactic Acid 1.1 mmol/L (0.4-1.9)
--- NOTE | 2020-09-10 14:24 | CT_ITS ---
We are attempting to reach an attending provider to discuss findings. An addendum with communication details will be sent when the communication is complete. STUDY: CT ABDOMEN AND PELVIS WITH CONTRAST REASON FOR EXAM: Female, 85 years old. Abdominal distention RADIATION DOSAGE (If Supplied By Facility): CTDIvol = ( 34.92 ) mGy, DLP = ( 1240.85 ) mGycm TECHNIQUE: Transaxial images were obtained from the dome of the diaphragm to the symphysis pubis without oral contrast. IV 75mL Isovue-370 was administered. Sagittal and coronal images were reconstructed. Individualized dose optimization techniques were used for this CT. COMPARISON: None. FINDINGS: There is bilateral lower lobe airspace consolidation. There are bilateral pleural effusions. The visualized portions of the heart are within normal limits. There are cysts in the liver measuring up to 1.4 cm. Normal gallbladder and extrahepatic biliary system. Normal spleen. The pancreas is poorly defined. There is a large upper abdominal mass on the left surrounding the left kidney and extending to the retroperitoneum and pelvis measuring 22.3 x 15.0 x 14.1 there is central diminished repeat density regions compatible with necrosis. . Normal bilateral adrenal glands. There are bilateral renal cysts. There is decreased function of the left kidney. Mass extends to the left renal hilum. There is no hydronephrosis. Normal visualized stomach. Normal small intestine. There are multiple colonic diverticula consistent with diverticulosis. The appendix is visualized and appears normal. There is atherosclerotic calcification of the abdominal aorta, without a demonstrated aneurysm. Normal inferior vena cava. There is retroperitoneal lymphadenopathy with confluent enlarged nodes. Normal urinary bladder. Uterus is not seen consistent with hysterectomy. There is moderate ascites in the abdomen and pelvis with partial loculation. Normal abdominal wall. There is demineralization of the osseous structures. CT/Abdomen/Pelvis W IV Cont ONLY IMPRESSION: Extensive mass of the left abdomen and pelvis extending to the renal hilum and retroperitoneum with displacement of the pancreas. Lymphoma or metastatic disease are leading considerations. There is ascites with loculation. Colonic diverticulosis. No obstruction. Bilateral pleural effusions and lower lung consolidation. Electronically Signed: Raymundo Wiley MD at 15:52 EDT , Service support ,
--- NOTE | 2020-09-10 14:26 | CT_ITS ---
STUDY: CTA CHEST REASON FOR EXAM: Female, 85 years old. Hypoxia high pretest probability RADIATION DOSAGE (If Supplied By Facility): CTDIvol = ( 34.92 ) mGy, DLP = ( 1240.85 ) mGycm TECHNIQUE: The examination was performed with the intravenous administration of 75mL Isovue-370. Post-processing of the angiographic images was performed, with multiplanar reformation and 3D reconstruction. Individualized dose optimization techniques were used for this CT. COMPARISON: None. FINDINGS: Normal enhancement of the main pulmonary artery and right and left pulmonary arteries. Normal enhancement of the bilateral peripheral pulmonary arteries. There is no demonstrated pulmonary embolism. Normal thoracic aorta and visualized great vessels. There is no demonstrated aortic dissection. Normal heart and pericardium. Normal mediastinum. There are calcified right hilar lymph nodes. Normal visualized trachea and bronchi. The lungs are well expanded. There are left greater than right mid and lower lung airspace opacities. There is a moderate volume right sided pleural effusion. There is a large volume left sided pleural effusion. Normal chest wall structures. There are degenerative changes of thoracic spine. There is increased kyphosis of the thoracic spine. There is ascites in the abdomen. There is ill-defined mass in the left upper abdomen CT/CTA Chest W/WO Contrast IMPRESSION: CTA chest examination, without a demonstrated pulmonary embolism or arterial dissection. Bilateral infiltrates and pleural effusions. Electronically Signed: Raymundo Wiley MD at 15:38 EDT , Service support ,
--- NOTE | 2020-09-10 15:50 | CM.ED ---
SOCIAL WORK Reason for Referral: Discharge Planning Discussed case with Dr. Nolan and hospitalist. Patient with poor prognosis. Family unsure of discharge plan at this time; leave AMA with oxygen, hospice referral, or transfer. This worker received call from patient's daughter, Lis Cordon who reports is en route to [place] from [place]. Daughter states her [id number] is a nurse and requests patient have MOLST or HPOA completed. Due to patient's current mental status in ER, unable to complete forms with patient. Lis reports patient's daughter, Laura is oldest child for decision making purposes. Laura currently at patient's bedside. Lis unsure of plan at this time and will be calling sister, Laura to discuss. This worker to remain available for needs. Adenike Donald, BANKING SPECIALIST, PLANT CHIEF
--- NOTE | 2020-09-10 16:00 | ED.RN ---
dr sharma in to discuss findings of ct abd with pt and pts daughter and give poor prognosis
[2020-09-10] MEDS: 0.9% Normal Saline 1,000 ML 1000 ML IV (16:06)
[2020-09-10] MEDS: Ondansetron 4 MG/2 ML Vial IV (16:18)
[2020-09-10] MEDS: Morphine 2 MG/ML Syringe IV (16:18)
--- NOTE | 2020-09-10 16:56 | NURSING ---
MED SURG KOTSONIS ABD MASS, ASCITES, BILATERAL PLEURAL EFFUSIONS, HYPOXIA
--- NOTE | 2020-09-10 17:34 | ED.RN ---
pt wanting to go [facility] to visit with daughter and family for 2 days from out of town. daughter wanting to selp pay for oxygen to get mom home to visit and then will bring back in when they leave dr. brown in to see and working with cm now
--- NOTE | 2020-09-10 18:15 | NURSING ---
dr rush in and pt and pt's and daughter wanting pt to go to [facility].
--- NOTE | 2020-09-10 18:25 | NURSING ---
CALLED [facility] TO START TRANSFER. TALKED TO ROB. HIGH ANDERSON
--- NOTE | 2020-09-10 20:38 | ED.RN ---
[facility] paged for transfer
--- NOTE | 2020-09-10 21:45 | ED.RN ---
called physicians for transfer ETA for transfer roughly 4 hours
[2020-09-10] MEDS: 0.9% Normal Saline 1,000 ML 100 ML IV (22:10)
[2020-09-11 03:00] VITALS: BP 116/67; PULSE 121; RESP 14; O2SAT 92
[2020-09-11 05:34] VITALS: BP 138/67; PULSE 125; RESP 16; O2SAT 92
--- NOTE | 2020-09-11 07:07 | ED.RN ---
after long discussion and education with family, they decided to send pt to hospice
[2020-09-11 07:28] VITALS: BP 131/72; PULSE 129; RESP 20; O2SAT 95
--- NOTE | 2020-09-11 08:52 | ED.RN ---
rn called [facility] for ETA update. dispatch updated with another 60minute ETA. RN will continue to monitor family and update family.
[2020-09-11] MEDS: Morphine 2 MG/ML Syringe IV (09:00)
[2020-09-11 09:05] VITALS: BP 133/66; PULSE 129; RESP 17; O2SAT 95
== END 2020-09-11 10:25 | disposition home or self-care (01) ==
PROVIDERS: Emergency Medicine; Emergency Provider Student in an Organized Health Care Education/Training Program; PCP Family Medicine Geriatric Medicine
DX: R18.8 Other ascites (principal); J90 Pleural effusion, not elsewhere classified; R09.02 Hypoxemia; R00.0 Tachycardia, unspecified; K21.9 Gastro-esophageal reflux disease without esophagitis; Z79.899 Other long term (current) drug therapy
CPT/HCPCS: 51702; 71275; 74177; 80053; 81001; 83605; 83690; 83880; 84484; 85025; 87040; 87086; 87426; 93005; 96365; 96366; 96367; 96375; 96376; 99285; J7030; J7050; Q9967; A4216; J2405